=== PATIENT | male | born 1990 | race Two or more races ===

== ENCOUNTER 2023-10-07 22:58 | Emergency (ER) | payer OTHER ==
[~2023-10-07] VITALS: Ht 177.8 cm; Wt 85.0 kg
[2023-10-07] MEDS ORDERED: BUPR150T8 PO (23:42)
[2023-10-08 04:50] VITALS: PULSE 95; RESP 18; O2SAT 100
[2023-10-08 04:55] VITALS: BP 137/99; PULSE 97; RESP 18; TEMP 99.7; O2SAT 100
== END 2023-10-08 05:01 | disposition home or self-care (01) ==
LOC: EDBD 22:58 → ER 22:58
DX: F32.A Depression, unspecified (principal); F41.9 Anxiety disorder, unspecified